=== PATIENT | female | born 1940 | race Native Hawaiian/Other Pacific Islander ===

== ENCOUNTER 2016-09-01 22:58 | Emergency (ER) | payer OTHER ==
[~2016-09-01] VITALS: Ht 160 cm; Wt 79.8 kg
[~2016-09-01 22:58] MED LIST: ASA LO-DOSE81 MG PO; BENADRYL25 M1 PO; FLUT0.05 NAS; FURO20TA67 PO; POT CHLORIDE10 MEQ PO; SIMV20TA2 PO; ZANTAC 75 PO; ZESTRIL40 MG PO
[2016-09-01 23:30] VITALS: BP 127/56; TEMP 98
== END 2016-09-01 23:31 | disposition home or self-care (01) ==
LOC: ED 22:58
DX: R51 Headache (principal); H61.21 Impacted cerumen, right ear
CPT/HCPCS: 99281

== ENCOUNTER 2016-09-03 15:11 | Outpatient (CLI) | payer OTHER | END 2016-09-03 15:15 | disposition short-term general hospital (02) | LOC: AMB 15:11 | DX: R55 Syncope and collapse (principal); E86.0 Dehydration; R53.1 Weakness; M25.512 Pain in left shoulder; M25.511 Pain in right shoulder | CPT/HCPCS: A0425; A0427 ==

== ENCOUNTER 2016-09-03 15:20 | Emergency (ER) | payer OTHER ==
[~2016-09-03] VITALS: Ht 160 cm; Wt 77.1 kg
[2016-09-03 16:10] LABS: PLATELET COUNT 274 K/uL (152-353)
[2016-09-03 16:11] LABS: POTASSIUM 3.7 mmol/L (3.6-5.2)
[2016-09-03 18:17] VITALS: BP 118/62; TEMP 97.9
== END 2016-09-03 18:18 | disposition home or self-care (01) ==
LOC: ED 15:20
DX: R55 Syncope and collapse (principal)
CPT/HCPCS: 80053; 81000; 85027; 99283

== ENCOUNTER 2016-10-23 11:06 | Emergency (ER) | payer OTHER ==
[~2016-10-23] VITALS: Ht 160 cm; Wt 74.8 kg
[2016-10-23 11:10] VITALS: TEMP 98.7
[2016-10-23 12:30] LABS: PLATELET COUNT 269 K/uL (152-353)
[2016-10-23 12:44] LABS: POTASSIUM 3.8 mmol/L (3.6-5.2)
[2016-10-23 14:13] VITALS: BP 132/85
== END 2016-10-23 14:14 | disposition home or self-care (01) ==
LOC: ED 11:06
PROVIDERS: Specialist
DX: R19.7 Diarrhea, unspecified (principal); E86.9 Volume depletion, unspecified
CPT/HCPCS: 36415; 80053; 83735; 84100; 85027; 96365; 96375; 99284; J1720; J2405

== ENCOUNTER 2016-12-12 09:58 | Emergency (ER) | payer OTHER ==
[~2016-12-12] VITALS: Ht 160 cm; Wt 77.1 kg
[2016-12-12 10:18] VITALS: BP 152/65; TEMP 97.8
== END 2016-12-12 10:19 | disposition home or self-care (01) ==
LOC: ED 09:58
DX: L76.32 Postprocedural hematoma of skin and subcutaneous tissue following other procedure (principal); Y83.8 Other surgical procedures as the cause of abnormal reaction of the patient, or of later complication, without mention of misadventure at the time of the procedure; Y92.89 Other specified places as the place of occurrence of the external cause
CPT/HCPCS: 99282

== ENCOUNTER 2017-01-19 10:46 | Outpatient (CLI) | payer OTHER | END 2017-01-19 19:06 | disposition home or self-care (01) | LOC: MAMMO 10:46 | DX: Z12.31 Encounter for screening mammogram for malignant neoplasm of breast (principal); Z13.820 Encounter for screening for osteoporosis; M85.88 Other specified disorders of bone density and structure, other site ==

== ENCOUNTER 2017-03-05 14:47 | Outpatient (CLI) | payer OTHER ==
[2017-03-05 15:27] LABS: PLATELET COUNT 261 K/uL (152-353)
[2017-03-05 16:00] LABS: POTASSIUM 3.8 mmol/L (3.6-5.2)
== END 2017-03-05 15:50 | disposition home or self-care (01) ==
LOC: LAB 14:47
PROVIDERS: Nurse Practitioner Family
DX: I10 Essential (primary) hypertension (principal); E55.9 Vitamin D deficiency, unspecified; I25.10 Atherosclerotic heart disease of native coronary artery without angina pectoris; Z79.899 Other long term (current) drug therapy; K21.9 Gastro-esophageal reflux disease without esophagitis; N39.0 Urinary tract infection, site not specified; R53.83 Other fatigue; E78.4 Other hyperlipidemia; R53.81 Other malaise
CPT/HCPCS: 80053; 80061; 83036; 84436; 84443; 85027

== ENCOUNTER 2017-04-07 19:38 | Emergency (ER) | payer OTHER ==
[~2017-04-07] VITALS: Ht 160 cm; Wt 74.8 kg
[2017-04-07 20:24] LABS: PLATELET COUNT 253 K/uL (152-353)
[2017-04-07 20:31] LABS: POTASSIUM 3.7 mmol/L (3.6-5.2)
[2017-04-07 22:35] VITALS: BP 120/51; TEMP 97.8
== END 2017-04-07 22:37 | disposition home or self-care (01) ==
LOC: ED 19:38
DX: J06.9 Acute upper respiratory infection, unspecified (principal)
CPT/HCPCS: 36415; 80053; 85027; 87081; 87804; 87880; 99283

== ENCOUNTER 2017-06-27 07:53 | Outpatient (CLI) | payer OTHER ==
[2017-06-27 08:39] LABS: PLATELET COUNT 228 K/uL (152-353)
== END 2017-06-27 18:00 | disposition home or self-care (01) ==
LOC: LABW 07:53
PROVIDERS: Nurse Practitioner Family
DX: I10 Essential (primary) hypertension (principal); E55.9 Vitamin D deficiency, unspecified; I25.10 Atherosclerotic heart disease of native coronary artery without angina pectoris; K21.9 Gastro-esophageal reflux disease without esophagitis; E78.4 Other hyperlipidemia; Z79.899 Other long term (current) drug therapy; Z51.81 Encounter for therapeutic drug level monitoring; J30.1 Allergic rhinitis due to pollen
CPT/HCPCS: 36415; 80053; 80061; 82679; 83036; 84403; 84436; 84443; 85027; 86003

== ENCOUNTER 2017-09-05 14:09 | Outpatient (CLI) | payer OTHER | END 2017-09-05 21:47 | disposition home or self-care (01) | LOC: LAB 14:09 | DX: N39.0 Urinary tract infection, site not specified (principal) | CPT/HCPCS: 87077; 87086; 87088; 87186 ==

== ENCOUNTER 2017-09-13 09:03 | Observation (INO) | payer OTHER ==
[~2017-09-13] VITALS: Ht 160 cm; Wt 75.1 kg
[2017-09-13 10:17] VITALS: BP 94/41; TEMP 97.8; Ht 160 cm; Wt 75.1 kg
[2017-09-13 10:24] LABS: PLATELET COUNT 265 K/uL (152-353)
[2017-09-13 10:25] LABS: POTASSIUM 3.3 mmol/L (3.6-5.2)
[2017-09-13] MEDS ORDERED: OMEPRAZOLE40 MG (10:38)
[2017-09-13] MEDS ORDERED: BENZONATATE100 MG PO ×2 (10:40→10:41)
[2017-09-13] MEDS ORDERED: MONT10TA PO (10:40)
[2017-09-13] MEDS ORDERED: AZELASTINE HCL0.1 % (10:40)
[2017-09-13 16:00] VITALS: BP 91/45; TEMP 98.3
[2017-09-13 20:10] VITALS: BP 96/41; TEMP 98.5
[2017-09-14 00:26] VITALS: BP 97/42; TEMP 98.2
[2017-09-14 04:00] VITALS: BP 98/39; TEMP 97.9
[2017-09-14 05:44] LABS: POTASSIUM 3.7 mmol/L (3.6-5.2)
[2017-09-14 05:46] LABS: PLATELET COUNT 278 K/uL (152-353)
[2017-09-14 08:00] VITALS: BP 92/50; TEMP 97.5
--- NOTE | 2017-09-14 10:52 | NUR ---
IV D/C'D. D/C INSTRUCTIONS GIVEN. JORGE VELASQUEZ WITH MIKENANCYLOLA JAYANT MADE 09-18-17 AT 0945. PT HAS NO FUTHER QUESTIONS. PT WHEELED OUT TO VEHICLE AT THIS TIME VIA W/C BY STUDENT NURSE. NO PROBLEMS NOTED.
== END 2017-09-14 10:50 | disposition home or self-care (01) ==
LOC: MED/SURG 09:03
PROVIDERS: ADMIT Pediatrics
DX: N39.0 Urinary tract infection, site not specified (principal); R50.9 Fever, unspecified; I10 Essential (primary) hypertension; E78.4 Other hyperlipidemia
CPT/HCPCS: 36415; 80053; 81000; 83605; 83880; 85027; 87040; 87081; 93005; 94760; 96365; 96372; 99220; G0378; G0379; J1650; J2185

== ENCOUNTER 2017-10-31 02:21 | Emergency (ER) | payer OTHER ==
[~2017-10-31 02:21] MED LIST changes: +AZELASTINE HCL0.1 %; +BENZONATATE100 MG PO; +MONT10TA PO; +OMEPRAZOLE40 MG
[2017-10-31 03:16] LABS: PLATELET COUNT 212 K/uL (152-353)
[2017-10-31 03:26] LABS: POTASSIUM 3.4 mmol/L (3.6-5.2)
[2017-10-31 04:08] VITALS: BP 142/82; TEMP 98.1
== END 2017-10-31 04:10 | disposition home or self-care (01) ==
LOC: ED 02:21
PROVIDERS: Internal Medicine
DX: R42 Dizziness and giddiness (principal); N30.80 Other cystitis without hematuria; E87.6 Hypokalemia; R00.1 Bradycardia, unspecified
CPT/HCPCS: 36415; 80053; 81000; 82550; 84484; 85027; 93005; 99283

== ENCOUNTER 2018-02-14 21:32 | Emergency (ER) | payer OTHER ==
[~2018-02-14] VITALS: Ht 160 cm; Wt 72.6 kg
[2018-02-14 23:02] LABS: PLATELET COUNT 208 K/uL (152-353)
[2018-02-14 23:11] LABS: POTASSIUM 3.4 mmol/L (3.6-5.2)
[2018-02-15 00:25] VITALS: BP 133/93; TEMP 99
== END 2018-02-15 00:29 | disposition home or self-care (01) ==
LOC: ED 21:32
PROVIDERS: Internal Medicine
DX: K52.89 Other specified noninfective gastroenteritis and colitis (principal); R19.7 Diarrhea, unspecified; D72.828 Other elevated white blood cell count
CPT/HCPCS: 36415; 74022; 80053; 81000; 85027; 96360; 99284

== ENCOUNTER 2018-05-18 14:52 | Emergency (ER) | payer OTHER ==
[~2018-05-18] VITALS: Ht 160 cm; Wt 72.6 kg
[2018-05-18 16:27] VITALS: BP 140/86; TEMP 98
== END 2018-05-18 16:28 | disposition home or self-care (01) ==
LOC: ED 14:52
DX: M54.2 Cervicalgia (principal); M46.82 Other specified inflammatory spondylopathies, cervical region
CPT/HCPCS: 96372; 99283; J1885

== ENCOUNTER 2018-05-24 10:36 | Emergency (ER) | payer OTHER ==
[~2018-05-24] VITALS: Ht 160 cm; Wt 72.6 kg
[2018-05-24 10:47] VITALS: BP 108/65; TEMP 97.5
== END 2018-05-24 11:36 | disposition home or self-care (01) ==
LOC: ED 10:36
DX: R51 Headache (principal)
CPT/HCPCS: 99281

== ENCOUNTER 2018-09-25 13:34 | Emergency (ER) | payer OTHER ==
[~2018-09-25] VITALS: Ht 160 cm; Wt 72.6 kg
[2018-09-25 13:35] VITALS: TEMP 99.9
[2018-09-25 14:23] LABS: PLATELET COUNT 220 K/uL (152-353)
[2018-09-25 14:45] LABS: POTASSIUM 3.6 mmol/L (3.6-5.2); SODIUM 135 mmol/L (136-145)
[2018-09-25 15:33] VITALS: BP 111/51
== END 2018-09-25 15:33 | disposition home or self-care (01) ==
LOC: ED 13:34
PROVIDERS: Emergency Medicine
DX: R07.89 Other chest pain (principal); N39.0 Urinary tract infection, site not specified; D72.828 Other elevated white blood cell count
CPT/HCPCS: 36415; 80053; 82550; 82553; 83880; 84484; 85027; 85379; 93005; 99284

== ENCOUNTER 2018-10-25 20:45 | Emergency (ER) | payer OTHER ==
[~2018-10-25] VITALS: Ht 160 cm; Wt 72.6 kg
[2018-10-25 21:15] VITALS: BP 173/78; TEMP 98.1
== END 2018-10-25 21:21 | disposition home or self-care (01) ==
LOC: ED 20:45
DX: R13.19 Other dysphagia (principal)
CPT/HCPCS: 99282

== ENCOUNTER 2018-11-13 13:27 | Outpatient (CLI) | payer OTHER ==
[2018-11-13 14:02] LABS: PLATELET COUNT 262 K/uL (152-353)
[2018-11-13 14:23] LABS: POTASSIUM 4.2 mmol/L (3.6-5.2)
== END 2018-11-13 19:54 | disposition home or self-care (01) ==
LOC: LAB 13:27
PROVIDERS: Nurse Practitioner Family
DX: K21.9 Gastro-esophageal reflux disease without esophagitis (principal); I10 Essential (primary) hypertension; E78.49 Other hyperlipidemia; I25.10 Atherosclerotic heart disease of native coronary artery without angina pectoris; R42 Dizziness and giddiness; R11.0 Nausea; Z79.899 Other long term (current) drug therapy
CPT/HCPCS: 80053; 80061; 82672; 83036; 84439; 84443; 85027

== ENCOUNTER 2019-01-07 09:01 | Outpatient (CLI) | payer OTHER ==
[~2019-01-07] VITALS: Ht 30.5 cm; Wt 0.5 kg
== END 2019-01-07 20:09 | disposition home or self-care (01) ==
LOC: NM 09:01
DX: R55 Syncope and collapse (principal); R42 Dizziness and giddiness; R07.89 Other chest pain; I25.10 Atherosclerotic heart disease of native coronary artery without angina pectoris
CPT/HCPCS: 93225; A9500; J2785

== ENCOUNTER 2019-03-03 15:36 | Outpatient (CLI) | payer OTHER ==
[2019-03-03 16:04] LABS: POTASSIUM 4.3 mmol/L (3.6-5.2)
[2019-03-03 16:12] LABS: PLATELET COUNT 237 K/uL (152-353)
== END 2019-03-03 20:48 | disposition home or self-care (01) ==
LOC: LAB 15:36
PROVIDERS: Nurse Practitioner Family
DX: Z00.00 Encounter for general adult medical examination without abnormal findings (principal); I10 Essential (primary) hypertension; I25.10 Atherosclerotic heart disease of native coronary artery without angina pectoris; E55.9 Vitamin D deficiency, unspecified; Z79.899 Other long term (current) drug therapy; K21.9 Gastro-esophageal reflux disease without esophagitis; R53.81 Other malaise; E78.49 Other hyperlipidemia
CPT/HCPCS: 80053; 80061; 82306; 83036; 84439; 85027

== ENCOUNTER 2019-09-24 08:24 | Outpatient (CLI) | payer OTHER | END 2019-09-24 19:43 | disposition home or self-care (01) | LOC: US 08:24 | DX: R74.8 Abnormal levels of other serum enzymes (principal) ==

== ENCOUNTER 2019-12-04 08:46 | Outpatient (CLI) | payer OTHER | END 2019-12-04 21:47 | disposition home or self-care (01) | LOC: LAB 08:46 | DX: Z11.59 Encounter for screening for other viral diseases (principal); R50.9 Fever, unspecified; R06.02 Shortness of breath | CPT/HCPCS: 87635; G2023; U0003 ==

== ENCOUNTER 2019-12-08 20:36 | Emergency (ER) | payer OTHER ==
[~2019-12-08] VITALS: Ht 160 cm; Wt 80.3 kg
[2019-12-08 21:48] LABS: POTASSIUM 3.5 mmol/L (3.6-5.2); SODIUM 139 mmol/L (136-145)
[2019-12-08 22:09] LABS: PARTIAL THROMBOPLASTIN TIME 22.7 SECONDS (24.5-33.6)
[2019-12-08 22:13] LABS: PLATELET COUNT 230 K/uL (152-353)
[2019-12-09 00:40] VITALS: BP 143/55; TEMP 98.7
== END 2019-12-09 00:40 | disposition home or self-care (01) ==
LOC: ED 20:36
PROVIDERS: Hospitalist
DX: N39.0 Urinary tract infection, site not specified (principal); R07.89 Other chest pain; J06.9 Acute upper respiratory infection, unspecified; Z20.828 Contact with and (suspected) exposure to other viral communicable diseases; R06.02 Shortness of breath
CPT/HCPCS: 36415; 80053; 81000; 82550; 83880; 84484; 85027; 85610; 85730; 87077; 87086; 87088; 87186; 87502; 87635; 87651; 93005; 96365; 96366; 96375; 99284; J1885; J1956; U0003

== ENCOUNTER 2020-01-07 09:39 | Day surgery (SDC) | payer OTHER ==
[2020-01-05 15:48] LABS: PLATELET COUNT 213 K/uL (152-353)
[2020-01-05 15:58] LABS: POTASSIUM 3.8 mmol/L (3.6-5.2)
[~2020-01-07] VITALS: Ht 30.5 cm; Wt 0.5 kg
== END 2020-01-07 12:27 | disposition home or self-care (01) ==
LOC: OR 09:39
PROVIDERS: Internal Medicine Gastroenterology
PROC: 0DB68ZZ Excision of Stomach, Via Natural or Artificial Opening Endoscopic (ICD-10-PCS; principal; 2020-01-07)
PROC: 0D738ZZ Dilation of Lower Esophagus, Via Natural or Artificial Opening Endoscopic (ICD-10-PCS; 2020-01-07)
PROC: 0D748ZZ Dilation of Esophagogastric Junction, Via Natural or Artificial Opening Endoscopic (ICD-10-PCS; 2020-01-07)
DX: K22.4 Dyskinesia of esophagus (principal); K22.2 Esophageal obstruction; K29.50 Unspecified chronic gastritis without bleeding; R10.13 Epigastric pain; K21.00 Gastro-esophageal reflux disease with esophagitis, without bleeding; R11.0 Nausea; R13.19 Other dysphagia
CPT/HCPCS: 80053; 85027; J2001; J2704; J7120

== ENCOUNTER 2020-01-28 09:39 | Day surgery (SDC) | payer OTHER ==
[~2020-01-28] VITALS: Ht 30.5 cm; Wt 0.5 kg
== END 2020-01-28 11:55 | disposition home or self-care (01) ==
LOC: OR 09:39
PROC: 0DBP8ZZ Excision of Rectum, Via Natural or Artificial Opening Endoscopic (ICD-10-PCS; principal; 2020-01-28)
DX: K62.1 Rectal polyp (principal); K63.5 Polyp of colon; K57.30 Diverticulosis of large intestine without perforation or abscess without bleeding; K64.8 Other hemorrhoids; Z12.11 Encounter for screening for malignant neoplasm of colon; Z86.010 Personal history of colon polyps; K59.09 Other constipation
CPT/HCPCS: J2704

== ENCOUNTER 2020-05-20 08:46 | Outpatient (CLI) | payer OTHER ==
[2020-05-20 09:06] LABS: PLATELET COUNT 200 K/uL (152-353)
== END 2020-05-20 21:05 | disposition home or self-care (01) ==
LOC: LABW 08:46
PROVIDERS: ATTEND Internal Medicine Gastroenterology
DX: K75.81 Nonalcoholic steatohepatitis (NASH) (principal)
CPT/HCPCS: 36415; 80053; 85027

== ENCOUNTER 2020-06-29 10:20 | Outpatient (CLI) | payer OTHER | END 2020-06-29 20:17 | disposition home or self-care (01) | LOC: RAD 10:20 | PROVIDERS: ATTEND Nurse Practitioner Family | DX: M25.561 Pain in right knee (principal) ==

== ENCOUNTER 2020-07-30 08:09 | Outpatient (CLI) | payer OTHER | END 2020-07-30 21:45 | disposition home or self-care (01) | LOC: NM 08:09 | PROVIDERS: ATTEND Internal Medicine Gastroenterology | DX: R11.0 Nausea (principal); R11.11 Vomiting without nausea | CPT/HCPCS: A9541 ==

== ENCOUNTER 2020-08-03 08:31 | Outpatient (CLI) | payer OTHER | END 2020-08-03 19:43 | disposition home or self-care (01) | LOC: MAMMO 08:31 | PROVIDERS: ATTEND Nurse Practitioner Family | DX: Z13.820 Encounter for screening for osteoporosis (principal); Z12.31 Encounter for screening mammogram for malignant neoplasm of breast; N95.8 Other specified menopausal and perimenopausal disorders ==

== ENCOUNTER 2020-08-13 21:45 | Observation (INO) | payer OTHER ==
[~2020-08-13] VITALS: Ht 160 cm; Wt 82.7 kg
[2020-08-13 22:00] VITALS: BP 137/54; TEMP 98.3
[2020-08-13 22:41] LABS: PLATELET COUNT 236 K/uL (152-353)
[2020-08-13 22:51] LABS: POTASSIUM 3.6 mmol/L (3.6-5.2); SODIUM 139 mmol/L (136-145)
[2020-08-13 23:00] VITALS: BP 90/51
[2020-08-14] VITALS: BP 112/41
[2020-08-14 00:05] VITALS: BP 103/56
--- NOTE | 2020-08-14 02:05 | NUR ---
PATIENT ARRIVED ON FLOOR FROM ER VIA W/C. AMBULATED TO BED. ORIENTED TO SURROUNDINGS, INCLUDING BATHROOM AND CALL LIGHT SYSTEM. SHE DENIES ANY PAIN AT THIS TIME. SHE REPORTS THAT SHE DOES HAVE A LOT OF STRESS AT HOME AND FEELS THAT IS WHAT TRIGGERED THE CHEST PAIN AND SOB SHE EXPERIENCED. RESPIRATIONS ARE EVEN AND UNLABORED. NAD NOTED. BED LOCKED AND IN LOWEST POSITION. CALL LIGHT WITHIN REACH.
[2020-08-14 03:27] VITALS: BP 111/47; TEMP 97.9; Ht 160 cm; Wt 82.7 kg
[2020-08-14 04:00] VITALS: BP 105/47; TEMP 98.5
--- NOTE | 2020-08-14 06:15 | NUR ---
PATIENT RESTING QUIETLY IN BED WITH EYES CLOSED. RESPIRATIONS EVEN AND UNLABORED. NAD NOTED. CALL LIGHT WITHIN REACH.
[2020-08-14 07:21] LABS: PARTIAL THROMBOPLASTIN TIME 29.1 SECONDS (24.5-33.6)
[2020-08-14 08:00] VITALS: BP 119/47; TEMP 98.7
--- NOTE | 2020-08-14 09:24 | NUR ---
REPORTED MORNING LABS TO DR. BENAVIDEZ, DR. BENAVIDEZ ORDERS TO CHANGE CARDIAC LABS FROM 1430 TO 1230 AND DC PT HOME IF RESULTS ARE NORMAL, NO FURTHER ORDERS GIVEN AT THIS TIME
[2020-08-14] MEDS ORDERED: PANTOPRAZOLE 40MG TA PO (10:49)
[2020-08-14] MEDS ORDERED: LEVO0.0218 PO (10:50)
[2020-08-14] MEDS ORDERED: METOCLOPRAM10 MG PO (10:51)
[2020-08-14] MEDS ORDERED: FENOFIBRATE50 MG PO (10:51)
[2020-08-14] MEDS ORDERED: ABACAVIR SULFAT1 TAB PO (10:52)
[2020-08-14 12:00] VITALS: BP 125/54; TEMP 98.8
--- NOTE | 2020-08-14 13:22 | NUR ---
NOTIFIED BY DR. BENAVIDEZ THAT PT IS TAKING A ANTIVIRAL MEDICATION THAT WAS NOT DISCLOSED TO NURSE AT TIME OF ADMISSION
--- NOTE | 2020-08-14 13:30 | NUR ---
PT DC INSTRUCTIONS GIVEN AND EXPLAINED TO PT, PT VERBALIZED UNDERSTANDING, IV REMOVED WITH CATHETER INTACT, PT INTSTRUCTED TO MAKE FOLLOWUP APPT WITH CIARRA XIONG IN ONE WEEK, PT DC VIA AMBULATION TO PRIVATE VEHICLE WITH FAMILY, NAD NOTED
== END 2020-08-14 13:25 | disposition home or self-care (01) ==
LOC: ED 21:45 → MED/SURG 23:50
PROVIDERS: ADMIT Family Medicine; ATTEND Internal Medicine
DX: R07.89 Other chest pain (principal); I25.10 Atherosclerotic heart disease of native coronary artery without angina pectoris; K21.9 Gastro-esophageal reflux disease without esophagitis; E03.8 Other specified hypothyroidism; E78.49 Other hyperlipidemia; I13.0 Hypertensive heart and chronic kidney disease with heart failure and stage 1 through stage 4 chronic kidney disease, or unspecified chronic kidney disease; N18.30 Chronic kidney disease, stage 3 unspecified; I50.89 Other heart failure; I25.2 Old myocardial infarction
CPT/HCPCS: 36415; 80053; 81000; 82550; 82553; 83880; 84484; 85027; 85610; 85730; 87635; 93005; 94760; 96360; 96372; 99220; 99283; G0378; J1650; U0003

== ENCOUNTER 2020-09-02 14:55 | Outpatient (CLI) | payer OTHER ==
[~2020-09-02 14:55] MED LIST changes: +ABACAVIR SULFAT1 TAB PO; +FENOFIBRATE50 MG PO; +LEVO0.0218 PO; +METOCLOPRAM10 MG PO; +PANTOPRAZOLE 40MG TA PO
== END 2020-09-02 23:50 | disposition home or self-care (01) ==
LOC: CT 14:55
PROVIDERS: ATTEND Specialist
DX: R10.31 Right lower quadrant pain (principal); R31.9 Hematuria, unspecified

== ENCOUNTER 2020-11-17 09:28 | Outpatient (CLI) | payer OTHER ==
[2020-11-17 10:22] LABS: PLATELET COUNT 221 K/uL (152-353)
[2020-11-17 10:31] LABS: POTASSIUM 4.4 mmol/L (3.6-5.2)
== END 2020-11-17 21:09 | disposition home or self-care (01) ==
LOC: CT 09:28
PROVIDERS: ATTEND Internal Medicine
DX: R60.0 Localized edema (principal); N18.32 Chronic kidney disease, stage 3b; R73.03 Prediabetes; R10.31 Right lower quadrant pain
CPT/HCPCS: 36415; 80053; 81000; 82043; 82306; 82330; 82570; 83036; 83735; 83970; 84100; 84155; 84439; 84443; 85027; Q9963

== ENCOUNTER 2020-12-01 22:29 | Emergency (ER) | payer OTHER ==
[~2020-12-01] VITALS: Ht 160 cm; Wt 79.8 kg
[2020-12-01 23:31] LABS: PLATELET COUNT 241 K/uL (152-353)
[2020-12-01 23:39] LABS: POTASSIUM 3.7 mmol/L (3.6-5.2)
[2020-12-02 00:15] VITALS: BP 113/45; TEMP 98.1
== END 2020-12-02 00:15 | disposition home or self-care (01) ==
LOC: ED 22:29
PROVIDERS: Family Medicine
DX: K21.9 Gastro-esophageal reflux disease without esophagitis (principal); U07.1 COVID-19
CPT/HCPCS: 36415; 80053; 85027; 99283

== ENCOUNTER 2020-12-10 20:38 | Emergency (ER) | payer OTHER ==
[~2020-12-10] VITALS: Ht 160 cm; Wt 80.7 kg
[2020-12-10 22:05] VITALS: BP 121/71; TEMP 98.3
== END 2020-12-10 22:05 | disposition home or self-care (01) ==
LOC: ED 20:38
DX: M54.5 Low back pain (principal)
CPT/HCPCS: 81000; 99283

== ENCOUNTER 2020-12-22 11:29 | Outpatient (CLI) | payer OTHER | END 2020-12-22 20:37 | disposition home or self-care (01) | LOC: LAB 11:29 | PROVIDERS: ATTEND Nurse Practitioner Family | DX: R19.7 Diarrhea, unspecified (principal) | CPT/HCPCS: 82272; 83630; 87015; 87045; 87324; 87328; 87329; 87449; 87899 ==

== ENCOUNTER 2021-03-03 15:54 | Outpatient (CLI) | payer OTHER | END 2021-03-03 19:14 | disposition home or self-care (01) | LOC: RAD 15:54 | PROVIDERS: ATTEND Nurse Practitioner Family | DX: R05.9 Cough, unspecified (principal) ==

== ENCOUNTER 2021-03-08 13:54 | Emergency (ER) | payer OTHER ==
[~2021-03-08] VITALS: Ht 160 cm; Wt 78.9 kg
[2021-03-08 13:54] VITALS: TEMP 98.1
[2021-03-08 14:48] LABS: PLATELET COUNT 267 K/uL (152-353)
[2021-03-08 14:54] LABS: POTASSIUM 3.6 mmol/L (3.6-5.2)
[2021-03-08 15:19] LABS: PARTIAL THROMBOPLASTIN TIME 23.2 SECONDS (24.5-33.6)
[2021-03-08 17:15] VITALS: BP 108/54
== END 2021-03-08 17:15 | disposition home or self-care (01) ==
LOC: ED 13:54
PROVIDERS: Hospitalist
DX: R07.89 Other chest pain (principal); K21.9 Gastro-esophageal reflux disease without esophagitis
CPT/HCPCS: 80053; 82550; 84484; 85027; 85610; 85730; 93005; 99284

== ENCOUNTER 2021-03-11 08:15 | Outpatient (CLI) | payer OTHER | END 2021-03-11 18:56 | disposition home or self-care (01) | LOC: RESP 08:15 | PROVIDERS: ATTEND Nurse Practitioner Family | DX: I44.0 Atrioventricular block, first degree (principal) | CPT/HCPCS: 93225 ==

== ENCOUNTER 2021-03-16 09:00 | Outpatient (CLI) | payer OTHER | END 2021-03-16 20:09 | disposition home or self-care (01) | LOC: RESP 09:00 | PROVIDERS: ATTEND Nurse Practitioner Family | DX: R06.09 Other forms of dyspnea (principal) ==

== ENCOUNTER 2021-06-17 09:51 | Outpatient (CLI) | payer OTHER | END 2021-06-17 19:34 | disposition home or self-care (01) | LOC: RESP 09:51 | PROVIDERS: ATTEND Nurse Practitioner Family | DX: I44.0 Atrioventricular block, first degree (principal) ==

== ENCOUNTER 2021-09-14 20:11 | Emergency (ER) | payer OTHER ==
[~2021-09-14] VITALS: Ht 160 cm; Wt 77.1 kg
[2021-09-14 20:30] VITALS: BP 104/54; TEMP 97.3
[2021-09-14 21:00] LABS: PLATELET COUNT 265 K/uL (152-353)
[2021-09-14 21:06] LABS: POTASSIUM 3.9 mmol/L (3.6-5.2)
== END 2021-09-14 21:58 | disposition home or self-care (01) ==
LOC: ED 20:11
PROVIDERS: Hospitalist
DX: J06.9 Acute upper respiratory infection, unspecified (principal); N18.9 Chronic kidney disease, unspecified; Z20.822 Contact with and (suspected) exposure to COVID-19
CPT/HCPCS: 36415; 80048; 85027; 87502; 87635; 87651; 96372; 99283; J0696; J1100; U0003

== ENCOUNTER 2021-09-20 10:22 | Outpatient (CLI) | payer OTHER ==
[2021-09-20 11:15] LABS: PLATELET COUNT 282 K/uL (152-353)
== END 2021-09-20 19:15 | disposition home or self-care (01) ==
LOC: LABW 10:22
PROVIDERS: ATTEND Nurse Practitioner Family
DX: R05.9 Cough, unspecified (principal); R07.89 Other chest pain
CPT/HCPCS: 36415; 80053; 82550; 82553; 83880; 84484; 85027

== ENCOUNTER 2021-10-06 14:54 | Outpatient (CLI) | payer OTHER | END 2021-10-06 19:03 | disposition home or self-care (01) | LOC: RAD 14:54 | PROVIDERS: ATTEND Nurse Practitioner Family | DX: M54.6 Pain in thoracic spine (principal) ==

== ENCOUNTER 2022-08-31 08:31 | Outpatient (CLI) | payer OTHER | END 2022-08-31 19:10 | disposition home or self-care (01) | LOC: RAD 08:31 | PROVIDERS: ATTEND Nurse Practitioner Family | DX: M85.88 Other specified disorders of bone density and structure, other site (principal) ==

== ENCOUNTER 2022-10-02 08:45 | Outpatient (CLI) | payer OTHER ==
[2022-10-02 09:24] LABS: PLATELET COUNT 262 K/uL (152-353)
[2022-10-02 09:59] LABS: POTASSIUM 3.3 mmol/L (3.6-5.2)
== END 2022-10-02 19:25 | disposition home or self-care (01) ==
LOC: LABW 08:45
PROVIDERS: ATTEND Internal Medicine
DX: N18.32 Chronic kidney disease, stage 3b (principal); R73.03 Prediabetes; R53.83 Other fatigue
CPT/HCPCS: 36415; 80053; 81002; 82043; 82306; 82330; 82570; 82607; 82728; 82746; 83036; 83540; 83550; 83735; 83970; 84100; 84156; 84439; 84443; 85027; 85652; 86038

== ENCOUNTER 2022-10-25 08:18 | Outpatient (CLI) | payer OTHER | END 2022-10-25 21:01 | disposition home or self-care (01) | LOC: CT 08:18 | PROVIDERS: ATTEND Internal Medicine | DX: R10.9 Unspecified abdominal pain (principal) | CPT/HCPCS: 82565; 84520; Q9963 ==

== ENCOUNTER 2022-12-19 08:00 | Outpatient (CLI) | payer OTHER | END 2022-12-19 20:42 | disposition home or self-care (01) | LOC: RAD 08:00 | PROVIDERS: ATTEND Nurse Practitioner Family | DX: M54.59 Other low back pain (principal) ==